=== PATIENT | male | born 2000 | race Caucasian/White ===

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

== ENCOUNTER 2022-01-18 21:31 | Emergency (ER) | payer SELFPAY ==
[~2022-01-18] VITALS: Ht 172.7 cm; Wt 65.8 kg
[2022-01-18 21:42] VITALS: BP 139/73
[2022-01-18] MEDS ORDERED: PANTOPRAZOLE 40 MG TABEC PO ONE (22:35)
[2022-01-18] MEDS ORDERED: ALBUTEROL SULFATE/IPRATROPIU 3 ML SOL IH ONE (22:35)
[2022-01-18] MEDS ORDERED: IBUPROFEN 800 MG TAB PO ONE (22:35)
--- NOTE | 2022-01-18 22:47 | NUR ---
PT AMBULATED TO BED 2.
--- NOTE | 2022-01-18 22:52 | NUR ---
RT AT BEDSIDE.
--- NOTE | 2022-01-18 22:54 | NUR ---
Gio mcfarlane in [facility] - 01/18/22 at 2254 by DILIP RT AT BEDSIDE
--- NOTE | 2022-01-18 23:10 | NUR ---
RAD AT BEDSIDE
--- NOTE | 2022-01-18 23:20 | NUR ---
21 YO M BIB SELF WITH C/C OF CHEST PAIN 05/18 WITH SOB XYESTERDAY. PT STATES HE FELT IT WAS HARD TO BREATH THE DAY BEFORE. REPORTS HX OF ASTHMA. REPORTS USING INHALER WITH NO RELIEF. HX:ASTHMA RX:PCN
--- NOTE | 2022-01-18 23:36 | NUR ---
PT REPORTS RELIEF AFTER BREATHING TX.
[2022-01-18] MEDS ORDERED: ALBU0.0912 IH (23:45)
[2022-01-19 00:20] VITALS: BP 128/67
[2022-01-19] MEDS ORDERED: TAM75 PO (05:50)
== END 2022-01-19 00:20 | disposition home or self-care (01) ==
LOC: MED 21:31
DX: J11.1 Influenza due to unidentified influenza virus with other respiratory manifestations (principal); Z20.822 Contact with and (suspected) exposure to COVID-19; R07.89 Other chest pain; F41.9 Anxiety disorder, unspecified; J45.909 Unspecified asthma, uncomplicated; Z79.899 Other long term (current) drug therapy; Z88.0 Allergy status to penicillin
CPT/HCPCS: 71045; 93005; 94640; 99285